=== PATIENT | male | born 1935 | race African-American/Black ===

== ENCOUNTER 2018-08-07 15:06 | Inpatient (IN) | payer MEDICARE, BC ==
[2018-08-07] VITALS (7 sets, daily range): BP systolic 102–180; BP diastolic 50–135
[~2018-08-07] VITALS: Ht 182.9 cm; Wt 88.5 kg
--- NOTE | 2018-08-07 15:10 | NUR ---
ED Nurse Note: Pt present at ER sent by his primary doctor Dr. Coe for possible stroke. Pt AAO x4 response to name spontaneuosly, VSS, no drooping and slurred speach noted at this moment. Remaining calm and cooperative with initial assessment.
[2018-08-07 15:45] LABS: BASOPHILS % (AUTO) 1.5 % (0.0-2.0); EOSINOPHILS % (AUTO) 1.2 % (0.0-3.0); HEMATOCRIT 44.1 % (42.0-52.0); HEMOGLOBIN 14.9 G/DL (14.2-18.0); LYMPHOCYTES % (AUTO) 25.2 % (20.0-45.0); MEAN CORPUSCULAR VOLUME 88 FL (80-99); MONOCYTES % (AUTO) 10.8 % (1.0-10.0); NEUTROPHILS % (AUTO) 61.4 % (45.0-75.0); PLATELET COUNT 269 K/UL (150-450); RED CELL DISTRIBUTION WIDTH 12.2 % (11.6-14.8); WHITE BLOOD COUNT 10.1 K/UL (4.8-10.8)
[2018-08-07 16:04] LABS: ANION GAP 11 mmol/L (5-15); BLOOD UREA NITROGEN 17 mg/dL (7-18); CALCIUM 9.1 MG/DL (8.5-10.1); CARBON DIOXIDE 27 MMOL/L (21-32); CHLORIDE 103 MMOL/L (98-107); CREATININE 1.1 MG/DL (0.55-1.30); SODIUM 141 MMOL/L (136-145)
--- NOTE | 2018-08-07 16:10 | NUR ---
ED Nurse Note: Pt went down for CT scan in stable condition.
[2018-08-07 16:13] LABS: ALANINE AMINOTRANSFERASE 10 U/L (12-78); ALBUMIN 3.7 G/DL (3.4-5.0); ALKALINE PHOSPHATASE 123 U/L (46-116); ASPARTATE AMINO TRANSFERASE 13 U/L (15-37); BILIRUBIN,TOTAL 0.5 MG/DL (0.2-1.0); CREATINE KINASE 105 U/L (26-308)
--- NOTE | 2018-08-07 16:29 | NUR ---
ED Nurse Note: Pt came back from CT scan in stable condition.
--- NOTE | 2018-08-07 16:38 | Emergency Room Report ---
History of Present Illness General Chief Complaint: Stroke Symptoms Source: Patient Present Illness HPI The patient was sent for evaluation of slurred speech. This started at 1:30 when he was getting on the bus to come see his doctor. His doctor noted that his speech was slurred and not his usual. He is uncertain whether this is starting to get better at this time. He denies any headache, weakness, numbness , change in vision. The patient has hypertension and a history of smoking. The patient denies head trauma, oncologic problems, bleeding disorders or blood thinners, unilateral weakness or numbness, chest pain or palpitations. No fevers, chills, nausea, vomiting, diarrhea, dysuria, abdominal pain, shortness of breath, depression, visual changes. Please try to stop smoking but the medication cost too much. He does not know what his cholesterol is. Allergies: Coded Allergies: No Known Allergies (Unverified , 08/07/18) Patient History Past Medical History: see triage record Social History: Reports: smoking; Denies: alcohol use, drug use Social History Narrative Lives at home. Previous body piercer Reviewed Nursing Documentation: PMH: Agreed; PSxH: Agreed Nursing Documentation-PMH Past Medical History: No History, Except For Hx Hypertension: Yes Review of Systems All Other Systems: negative except mentioned in HPI Physical Exam Vital Signs Date Time Temp Pulse Resp B/P (MAP) Pulse Ox O2 Delivery O2 Flow Rate FiO2 08/07/18 15:10 97.7 77 18 122/70 94 Room Air Sp02 EP Interpretation: reviewed, normal General Appearance: well appearing, no apparent distress, GCS 15 Head: normocephalic, atraumatic Eyes: bilateral eye normal inspection, bilateral eye PERRL ENT: moist mucus membranes Neck: supple Respiratory: lungs clear, normal breath sounds Cardiovascular #1: regular rate, rhythm Cardiovascular #2: 2+ radial (R) Gastrointestinal: normal inspection, normal bowel sounds, non tender, no mass, non-distended Musculoskeletal: back normal, gait/station normal, normal range of motion Neurologic: alert, oriented x3, clerk rating III-XII nml as tested, motor strength/tone normal, DTRs symmetric, sensory intact, cerebellar normal, normal gait, speech normal Psychiatric: mood/affect normal Skin: normal inspection, warm/dry Medical Decision Making Diagnostic Impression: Primary Impression: TIA (transient ischemic attack) Additional Impressions: HTN (hypertension) Qualified Codes: I10 - Essential (primary) hypertension Tobacco abuse ER Course Patient presents with alterations in his speech. Differential includes stroke, TIA, electrolyte imbalance, drug ingestion amongst others. He is within the window for receiving TPA however based on his NIH score TPA is not indicated. In addition it is possible that he is improving at this time. Evaluation was EKG, chest x-ray and a CT of the head and labs. EKG without injury. Chest x-ray COPD. CT of the head unremarkable, no bleed, infarct or abnormality noted. Labs unremarkable. Aspirin is given. Dr. Coe declines Plavix. The patient does not want to be observed but discussion centered around needing to be evaluated by neurologist including having studies of his carotid blood flow. The patient agrees to observation. Dr. Coe requests we order an MRI. MRI suggests infarct. This was discussed with the patient. Patient is admitted to telemetry under the care of Dr. Coe. Dr. Fitch is contacted for consultation. Laboratory Tests Test 08/07/18 15:26 08/07/18 16:14 White Blood Count 10.1 K/UL (4.8-10.8) Red Blood Count 5.00 M/UL (4.70-6.10) Hemoglobin 14.9 G/DL (14.2-18.0) Hematocrit 44.1 % (42.0-52.0) Mean Corpuscular Volume 88 FL (80-99) Mean Corpuscular Hemoglobin 29.7 PG (27.0-31.0) Mean Corpuscular Hemoglobin Concent 33.7 G/DL (32.0-36.0) Red Cell Distribution Width 12.2 % (11.6-14.8) Platelet Count 269 K/UL (150-450) Mean Platelet Volume 5.9 FL (6.5-10.1) L Neutrophils (%) (Auto) 61.4 % (45.0-75.0) Lymphocytes (%) (Auto) 25.2 % (20.0-45.0) Monocytes (%) (Auto) 10.8 % (1.0-10.0) H Eosinophils (%) (Auto) 1.2 % (0.0-3.0) Basophils (%) (Auto) 1.5 % (0.0-2.0) Prothrombin Time 10.7 SEC (9.30-11.50) Prothrombin Time INR 1.0 (0.9-1.1) PTT 26 SEC (23-33) Sodium Level 141 MMOL/L (136-145) Potassium Level 4.0 MMOL/L (3.5-5.1) Chloride Level 103 MMOL/L (98-107) Carbon Dioxide Level 27 MMOL/L (21-32) Anion Gap 11 mmol/L (5-15) Blood Urea Nitrogen 17 mg/dL (7-18) Creatinine 1.1 MG/DL (0.55-1.30) Estimate Glomerular Filtration Rate mL/min (>60) Glucose Level 116 MG/DL (74-106) H Calcium Level 9.1 MG/DL (8.5-10.1) Total Bilirubin 0.5 MG/DL (0.2-1.0) Aspartate Amino Transferase (AST) 13 U/L (15-37) L Alanine Aminotransferase (ALT) 10 U/L (12-78) L Alkaline Phosphatase 123 U/L (46-116) H Total Creatine Kinase 105 U/L (26-308) Troponin I 0.007 ng/mL (0.000-0.056) Pro-B-Type Natriuretic Peptide 261 pg/mL (0-125) H Total Protein 7.3 G/DL (6.4-8.2) Albumin 3.7 G/DL (3.4-5.0) Globulin 3.6 g/dL Albumin/Globulin Ratio 1.0 (1.0-2.7) Urine Color Yellow Urine Appearance Clear Urine pH 5 (4.5-8.0) Urine Specific [place] 1.025 (1.005-1.035) Urine Protein 1+ (NEGATIVE) H Urine Glucose (UA) Negative (NEGATIVE) Urine Ketones 1+ (NEGATIVE) H Urine Blood Negative (NEGATIVE) Urine Nitrite Negative (NEGATIVE) Urine Bilirubin Negative (NEGATIVE) Urine Urobilinogen 4 MG/DL (0.0-1.0) H Urine Leukocyte Esterase 1+ (NEGATIVE) H Urine RBC 0-2 /HPF (0 - 0) H Urine WBC 0-2 /HPF (0 - 0) Urine Squamous Epithelial Cells None /LPF (NONE/OCC) Urine Calcium Oxalate Crystals Few /LPF (NONE) Urine Bacteria Occasional /HPF (NONE) Urine Mucus Moderate /LPF (NONE/OCC) H Urine Opiates Screen Negative (NEGATIVE) Urine Barbiturates Screen Negative (NEGATIVE) Phencyclidine (PCP) Screen Negative (NEGATIVE) Urine Amphetamines Screen Negative (NEGATIVE) Urine Benzodiazepines Screen Negative (NEGATIVE) Urine Cocaine Screen Negative (NEGATIVE) Urine Marijuana (THC) Screen Negative (NEGATIVE) EKG Diagnostic Results Rate: normal Rhythm: NSR ST Segments: no acute changes - pvc Rhythm Strip Diag. Results EP Interpretation: yes Rhythm: NSR, other - rate 85 PVC Chest X-Ray Diagnostic Results Chest X-Ray Diagnostic Results : Chest X-Ray Ordered: Yes # of Views/Limited/Complete: 1 View Indication: Other EP Interpretation: Yes Interpretation: no consolidation, no effusion, no pneumothorax, other - COPD Impression: Other Electronically Signed by: Electronically signed by Alvaro Orellana MD CT/MRI/US Diagnostic Results CT/MRI/US Diagnostic Results #1: Imaging Test Ordered: head Impression no IC abnormality CT/MRI/US Diagnostic Results #2: Imaging Test Ordered: MRI head with contrast Impression Suggestion of small infarct Last Vital Signs Date Time Temp Pulse Resp B/P (MAP) Pulse Ox O2 Delivery O2 Flow Rate FiO2 08/08/18 00:30 97.5 57 17 129/57 (81) 96 08/07/18 21:33 Room Air Status: improved Disposition: ADMITTED INPATIENT Condition: Serious Referrals: Allen Larson DO (PCP) Alvaro Orellana MD Aug 07, 2018 16:37
[2018-08-07 16:41] LABS: APPEARANCE,URINE CLEAR; BILIRUBIN, URINE NEGATIVE (NEGATIVE); GLUCOSE, URINE (UA) NEGATIVE (NEGATIVE); KETONES,URINE 1+ (NEGATIVE); LEUKOCYTE ESTERASE ,URINE 1+ (NEGATIVE); NITRITE,URINE NEGATIVE (NEGATIVE); PH,URINE 5 (4.5-8.0); PROTEIN,URINE 1+ (NEGATIVE); UROBILINOGEN,URINE 4 MG/DL (0.0-1.0)
[2018-08-07 16:44] LABS: COLOR,URINE YELLOW
[2018-08-07] MEDS ORDERED: Gadavist 7.5mMol/7.5ml vial IV PRN (17:00)
--- NOTE | 2018-08-07 18:26 | Geriatric Progress Note ---
Subjective Interval Events Patient with generally good health, continues to lift weights. Frequently treated by ? external compression therapy in [place]. Takes OTC supplements. Used Creatine for body building. Seen by Dr. Fitch for HTN. History of HTN in office, but reportedly normal bps at home. Started on HCTZ. Subsequently started ON amlodipine and metoprolol by Dr. Fitch. +Smoking history. When seen in office, garbled speech with naming difficulities. No obvious receptive deficits. Baseline speech is slight stuttering "street" yuriy. No focal deficits appreciated in office, but some slowness in response, mild apraxia with cellphone. Improved now in ED with speech c/w baseline, slowness resolved. PE with elevated bp. Chest clear CV RR Abd benign Ext without edema. MRI with R troy radiata infarct just above insula, no comment on age. Discussed with Dr. Lyn, reports infarct is acute. Unclear if lesion would produce transient aphasia. Neuro consult pending per Dr. Toney. Given acute finding will also check EEG and Echo. Dr. Fitch to see re cardiac status. Given ASA by Dr. Orellana. Resume antihypertensives to keep systolic below 160, but not too low. Dictated #[id number] Geriatric Geriatric Last 24 Hour Vital Signs Date Time Temp Pulse Resp B/P (MAP) Pulse Ox O2 Delivery O2 Flow Rate FiO2 08/07/18 17:04 97.9 92 16 102/60 100 Room Air 08/07/18 15:15 98.8 91 22 171/91 98 Room Air 08/07/18 15:10 97.7 77 18 122/70 94 Room Air Laboratory Tests Test 08/07/18 15:26 08/07/18 16:14 White Blood Count 10.1 K/UL (4.8-10.8) Red Blood Count 5.00 M/UL (4.70-6.10) Hemoglobin 14.9 G/DL (14.2-18.0) Hematocrit 44.1 % (42.0-52.0) Mean Corpuscular Volume 88 FL (80-99) Mean Corpuscular Hemoglobin 29.7 PG (27.0-31.0) Mean Corpuscular Hemoglobin Concent 33.7 G/DL (32.0-36.0) Red Cell Distribution Width 12.2 % (11.6-14.8) Platelet Count 269 K/UL (150-450) Mean Platelet Volume 5.9 FL (6.5-10.1) L Neutrophils (%) (Auto) 61.4 % (45.0-75.0) Lymphocytes (%) (Auto) 25.2 % (20.0-45.0) Monocytes (%) (Auto) 10.8 % (1.0-10.0) H Eosinophils (%) (Auto) 1.2 % (0.0-3.0) Basophils (%) (Auto) 1.5 % (0.0-2.0) Prothrombin Time 10.7 SEC (9.30-11.50) Prothromb Time International Ratio 1.0 (0.9-1.1) Activated Partial Thromboplast Time 26 SEC (23-33) Sodium Level 141 MMOL/L (136-145) Potassium Level 4.0 MMOL/L (3.5-5.1) Chloride Level 103 MMOL/L (98-107) Carbon Dioxide Level 27 MMOL/L (21-32) Anion Gap 11 mmol/L (5-15) Blood Urea Nitrogen 17 mg/dL (7-18) Creatinine 1.1 MG/DL (0.55-1.30) Estimat Glomerular Filtration Rate mL/min (>60) Glucose Level 116 MG/DL (74-106) H Calcium Level 9.1 MG/DL (8.5-10.1) Total Bilirubin 0.5 MG/DL (0.2-1.0) Aspartate Amino Transf (AST/SGOT) 13 U/L (15-37) L Alanine Aminotransferase (ALT/SGPT) 10 U/L (12-78) L Alkaline Phosphatase 123 U/L (46-116) H Total Creatine Kinase 105 U/L (26-308) Troponin I 0.007 ng/mL (0.000-0.056) Pro-B-Type Natriuretic Peptide 261 pg/mL (0-125) H Total Protein 7.3 G/DL (6.4-8.2) Albumin 3.7 G/DL (3.4-5.0) Globulin 3.6 g/dL Albumin/Globulin Ratio 1.0 (1.0-2.7) Urine Color Yellow Urine Appearance Clear Urine pH 5 (4.5-8.0) Urine Specific [place] 1.025 (1.005-1.035) Urine Protein 1+ (NEGATIVE) H Urine Glucose (UA) Negative (NEGATIVE) Urine Ketones 1+ (NEGATIVE) H Urine Blood Negative (NEGATIVE) Urine Nitrite Negative (NEGATIVE) Urine Bilirubin Negative (NEGATIVE) Urine Urobilinogen 4 MG/DL (0.0-1.0) H Urine Leukocyte Esterase 1+ (NEGATIVE) H Urine RBC 0-2 /HPF (0 - 0) H Urine WBC 0-2 /HPF (0 - 0) Urine Squamous Epithelial Cells None /LPF (NONE/OCC) Urine Calcium Oxalate Crystals Few /LPF (NONE) Urine Bacteria Occasional /HPF (NONE) Urine Mucus Moderate /LPF (NONE/OCC) H Urine Opiates Screen Negative (NEGATIVE) Urine Barbiturates Screen Negative (NEGATIVE) Phencyclidine (PCP) Screen Negative (NEGATIVE) Urine Amphetamines Screen Negative (NEGATIVE) Urine Benzodiazepines Screen Negative (NEGATIVE) Urine Cocaine Screen Negative (NEGATIVE) Urine Marijuana (THC) Screen Negative (NEGATIVE) Current Medications Medications (Trade) Dose Ordered Sig/[place] Route PRN Reason Start Time Stop Time Status Last Admin Dose Admin Gadobutrol (Gadavist) 7.5 mmol NOW PRN IV Radiology Procedure 08/07/18 17:00 08/11/18 16:53 Height (Feet): 6 Weight (Pounds): 195 Catracho Coe MD Aug 07, 2018 18:26
--- NOTE | 2018-08-07 18:32 | NUR ---
ED Nurse Note: Pt came back from MRI. No s/s of distress. Duplex scan at the bedside at this time.
--- NOTE | 2018-08-07 19:21 | NUR ---
HAND-OFF: Report given to Renu. Not able to give report to Tali at this time. Skin intact and pt is stable, AAOx4
--- NOTE | 2018-08-07 20:41 | NUR ---
ED Nurse Note: Patient having multiple conversations over the phone. Patient is A&ox4, no complaints of pain. Blood pressure elevated, ERMD aware.
--- NOTE | 2018-08-07 21:06 | NUR ---
ED Nurse Note: report called into kristel. PAtient accompanied to floor by RN and product technology scientist. Orthostatic Bp taken prior to transport, Patient A&Ox43. no complaints of pain. secured entrance monitor in tow.
--- NOTE | 2018-08-07 21:15 | NUR ---
NURSE NOTES: Pt admitted to floor from ED. osteology teacher applied; pt is SR. VSS. Pt belongings verified. Report received from TC Sears. Pt is sitting comfortably on side of bed. A+Ox4, denies pain and SOB. Pt shows no signs of distress. IV site is patent, intact, and saline locked. Respirations are even and unlabored on room air. Bed is at lowest position, brakes engaged, siderails x2, bed alarm on, and call light within reach. Pt is in stable condition at this time, admission orders in; will continue to monitor.
--- NOTE | 2018-08-07 22:03 | Consultation ---
Consult Note Consult Note NEUROLOGY CONSULTATION: Full note dictated #[id number] 83 y/o, RH, BM with PH of HTN and smoking since age 18. He was at his Dr's office and was noted to have problems expressing himself. The problem lasted ~ 5-10 minutes and then resolved. ON EXAM: Problems with memory. HCF Mild anomia IMPRESSION: Possible TIA involving language area. REC: Await MRI. BP control 120-130/70-80 mm of Hg goal. W/U for other reasons for CVD. ASA 81 mg STOP smoking. Observe Abrahan Toney M.D., M.S.P.H. Abrahan Toney MD Aug 07, 2018 22:03
[2018-08-07] MEDS: Metoprolol 25mg tab ORAL SCH (22:05)
[2018-08-07] MEDS ORDERED: METOPROLOL SUCC25 MG ORAL (23:16)
[2018-08-07] MEDS ORDERED: ASPIRIN81 MG ORAL (23:16)
[2018-08-08 00:30] VITALS: BP 129/57
--- NOTE | 2018-08-08 00:42 | Consultation ---
DATE OF CONSULTATION: 08/07/2018 NEUROLOGY CONSULTATION CONSULTING PHYSICIAN: Abrahan Toney M.D. REFERRING PHYSICIAN: Catracho Coe M.D. HISTORY: Mr. Ian Thomas is an 83-year-old, right-handed, black gentleman, who does have a past history of hypertension and smoking since he was age 18. He was functioning relatively well until the afternoon of 08/07/18 when he was at his doctor's office and was noted to have problems expressing himself. He was sent to the [facility] Emergency Room and he feels that the problem lasted for approximately 5 to 10 minutes and then resolved spontaneously. He remembers having problems with saying what he wanted to say, but he had no problems understanding what people were telling him. He also denied any associated weakness on one side or the other, numbness on one side or the other, problems with vision, problems with memory, or other neurological symptoms. He denies having similar symptoms in the past. PAST MEDICAL HISTORY: Significant for hypertension and smoking since age 18. FAMILY HISTORY: Significant for his mother having multiple strokes. PERSONAL HISTORY: Home: He lives alone. 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 Habits: He started smoking at age 18 and still smokes 7 to 8 cigarettes per day. He denies use of alcohol or illicit drugs. PRESENT MEDICATIONS: Metoprolol, amlodipine, and aspirin 325 mg taken once. PHYSICAL EXAMINATION: GENERAL: He is a well-developed, well-nourished, pleasant black gentleman, in no acute distress. VITAL SIGNS: Pulse 72/minute, blood pressure 146/90 mmHg, respirations 18/minute, and temperature 97.9 degrees Fahrenheit. When he came into the hospital, his blood pressure was as high as 180/78 mmHg when he was in the emergency room. HEAD: Normocephalic and atraumatic. EENT: Examination benign except for him being edentulous other than having two teeth remaining. NECK: No neck rigidity was observed. NEUROLOGICAL EXAMINATION: MENTAL STATUS EXAMINATION: He was awake and alert. He was oriented to person, place, and time. He was able to recall 3/3 words immediately, but could only remember 2/3 words in 1 minute and 3 minutes even on the second trial. He was able to remember Presidents Trump through Goss Jagjit. His mathematical skills were impaired. His visuospatial function was also impaired. SPEECH: He had a mild dysarthria, but it should be noted that he was close to edentulous. LANGUAGE: He had a mild anomia for low-frequency words. CRANIAL NERVE EXAMINATION: II: The visual prakash were intact on confrontation testing. III, IV & : The external ocular movements were full and the pupils 3 mm in diameter, equal, round, regular, and reactive to light. V: He had normal facial sensations, and the temporales, masseters, and pterygoids functioned normally. VII: He had normal facial expressions and no facial asymmetry. VIII: He was able to hear well bilaterally and had no nystagmus. IX: The palate moved symmetrically on phonation. X: He had no hoarseness of voice. XI: The sternocleidomastoids and trapezii functioned normally. XII: The tongue was in the midline without any fasciculations or atrophy. MOTOR SYSTEM: The tone was normal in all four extremities. Examination of muscle mass revealed no focal wasting. He did have bilateral deep Dupuytren's contractures, more marked on the right than on the left. Examination of power revealed G 5/5 power in all muscle groups tested. SENSORY EXAMINATION: He had intact sensations to pinprick, light touch, and graphesthesia. COORDINATION: He performed well on cbzdtb-gw-spca testing. REFLEXES: 1+ and bilaterally symmetrical at the biceps, triceps, brachioradialis, and knees, and 0 at both ankles. The plantar responses were flexor bilaterally. STANCE: He had a minimally wide-based, but stable stance. GAIT: He walked with a minimally wide-based, but stable gait. DIAGNOSTIC IMPRESSION: 1. Mr. Ian Thomas is an 83-year-old, right-handed, black gentleman, with past history of hypertension and smoking, who on the afternoon of 08/07/18 had 5 to 10-minute episode of problems expressing himself, which resolved spontaneously. 2. On neurological examination at this time, he does have problems with recent and remote memory, visuospatial function, higher cognitive function, and a mild anomia. 3. Laboratory data obtained thus far have revealed a relatively normal CBC. Chemistry panel with blood glucose elevated to 116, alkaline phosphatase elevated to 123. ProBNP elevated to 161. Urine toxicology screen that was benign. Urinalysis that revealed 1+ leukocyte esterase, 0-2 red blood cells, and 0-2 white blood cells per high-power field. 4. The patient's history, neurological examination, and laboratory data are most compatible with a possible transient ischemic event involving the language area of the brain. RECOMMENDATIONS: 1. The patient was given an explanation of the above-mentioned findings. 2. He has had an MRI scan of the brain performed, however, the images and report are unavailable to us at this point in time. 3. He should be started on aspirin 81 mg daily. 4. His blood pressure should be kept in the 120 to 130 over 70 to 80 mmHg range at all times. 5. He was told to stop smoking immediately. 6. He should be worked up for other treatable causes of cerebrovascular disease with in addition to the laboratory tests already done, an ESR, RPR, glycohemoglobin, fasting serum lipid panel, and TSH. 7. A carotid duplex should be performed to evaluate the patient for hemodynamically significant carotid disease. 8. The patient will be observed closely and depending on how he fares over the next day or so, further recommendations will be given. Thank you for entrusting me with the care of Mr. Thomas. I shall follow him with you. Abrahan Toney M.D., M.S.P.H. DR: YIN JOB#: [id number] SAÚL
--- NOTE | 2018-08-08 01:30 | Consultation ---
DATE OF CONSULTATION: 08/07/2018 CARDIOLOGY CONSULTATION CONSULTING PHYSICIAN: Alvaro Fitch M.D. REQUESTING PHYSICIAN: Catracho Coe M.D. REASON FOR CONSULTATION: Acute cerebrovascular accident. HISTORY OF PRESENT ILLNESS: This is an 83-year-old male. He has multiple risk factors for accelerated atherosclerosis. He has been in good health generally, however, and lifts weights and is quite active. He was recently started on additional antihypertensives by me following evaluation at my office on several occasions. He also had an outpatient echocardiogram revealing left ventricular hypertrophy with normal ejection fraction and a diastolic relaxation abnormality. He was seen in Dr. Coe's office today and had garbled speech with difficulty naming objects. Response time was slower than usual. There was apraxia noted with his cellphone. Later, those symptoms improved after he was sent to the emergency room. However, an MRI done revealed an acute right troy radiata infarct. PAST MEDICAL HISTORY: The patient's past medical history includes hypertension. MEDICATIONS: Amlodipine, metoprolol, and possibly hydrochlorothiazide, as well as aspirin that I had prescribed although compliance is unclear. ALLERGIES: None. SOCIAL HISTORY: Heavy smoker, [id number] of at least a pack a day. Social alcohol. No substance abuse. FAMILY HISTORY: Noncontributory. REVIEW OF SYSTEMS: No fevers or chills. No cough or sputum production. No history of regular steroid use. He does use creatine for his weight lifting. There is no prior history of seizure or stroke. His cholesterol parameters are not presently available. There is no history of thyroid disorder or diabetes. There is no difficulty voiding or history of elevated PSA. There is no history of melena or bright red blood per rectum. There is no history of abnormal blood clotting. PHYSICAL EXAM: VITAL SIGNS: Blood pressure in the emergency room on presentation 122/70, subsequently 171/91, now 129/57, heart rate 81, and respiratory rate 17. HEENT: Conjunctivae are pink. Sclerae are anicteric. Oropharynx clear. Mucous membranes moist. NECK: Supple. No bruits. Jugular venous pressure normal. LUNGS: Clear. CARDIAC: Regular. Normal S1, S2 with a fourth heart sound. Occasional ectopic beats. Monitored rhythm, sinus with premature ventricular contractions nonsustained. ABDOMEN: Soft and nontender. EXTREMITIES: Good pulses. No edema. NEUROLOGIC: Reveals symmetric strength at this time and mild difficulty with some words. LABORATORY DATA: Chemistry panel within normal limits other than glucose 116 and pro-natriuretic peptide 261. Troponin 0.007. White count 10 and hemoglobin 14.9. Urinalysis with 0 to 2 white and red cells and 1+ protein. EKG with sinus rhythm and occasional premature ventricular contractions. IMPRESSION: 1. Acute cerebrovascular accident. 2. 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 3. Nonsustained ventricular ectopy. 4. Nicotine abuse. 5. Generalized atherosclerosis. PLAN: 1. Cardiac monitoring. 2. Advance anti-platelet therapy to clopidogrel. 3. Continue beta-roderick and titrate amlodipine. 4. Check full lipid panel. 5. Metabolic profile. 6. Add statin drugs. 7. Echocardiogram with bubble study. 8. Carotid duplex. 9. Physical, occupational, and speech therapy to follow. Alvaro Fitch M.D. DR: RILEY JOB#: [id number] CC:
[2018-08-08 04:00] VITALS: BP 147/79
--- NOTE | 2018-08-08 05:15 | History and Physical Report ---
DATE OF ADMISSION: 08/07/2018 IDENTIFYING DATA: The patient is an 83-year-old gentleman, who presents with an episode of transient aphasia and altered mental status with evidence of probable lacunar stroke on MRI. HISTORY OF PRESENT ILLNESS: The patient is a gentleman who has generally been in relatively good health. At his age of 83, he continues to exercise and participate in bodybuilding. His major medical problem has been poorly controlled hypertension and he continues to smoke. On the present occasion, the patient presented to the office today for a routine visit. On presentation to the office, he developed garbled speech with word-finding difficulties and also appeared to be somewhat slowed in his mentation and somewhat apractic in his use of cellphone. The patient himself was not entirely aware of the situation. He did not appear to have significant receptive component since he responded appropriately and attempted to converse in a normal fashion. An attempt was made to call family members who had seen him recently to determine whether this was something they had noted over the last day or so, but no one could be reached. A brief neurologic examination in the office failed to reveal evidence of lateralizing signs in the cranial nerves or peripherally, although there did appear to be a somewhat broader based gait than it was normal for him. In any event, given the acute presentation, the possibility of an incipient or ongoing cerebrovascular accident was considered and the patient was brought to the [facility] Emergency Department. In the emergency department, initial evaluation failed to reveal any specific abnormalities. The patient's initial blood pressure was somewhat elevated apparently in the emergency room as it had been in the office. An initial CT scan failed to show evidence of acute pathology. However, given the definite functional changes noted, it was felt the patient should undergo an MRI of the brain with contrast as well as further observation. An MRI was completed and reportedly showed evidence of a right troy radiata infarct just above the insula. Therefore, the patient is being admitted for further evaluation and treatment. As the patient's aphasic deficits have gradually resolved over approximately two- to three-hour period, the patient reports that he is definitely feeling better, but he was unable to describe what his symptoms may have been during the period where he was experiencing difficulties. However, he admits he clearly feels differently now and feels more at baseline. PAST MEDICAL HISTORY: The patient has a significant history of hypertension; however, he has often reported that his hypertension appears to be white coat in etiology with normal blood pressures at home. In fact, home health care surveillance has indicated at times that the blood pressures run lower than in the office. Therefore, for a significant period of time, the patient was treated expectantly without medication therapy. However, approximately a year ago, the patient was begun on hydrochlorothiazide as initial therapy. He subsequently was seen by Dr. Alvaro Fitch, who placed the patient on doses of metoprolol and amlodipine. The patient had been taking these, but may have run out of the medication, at least one of the medications in the days just prior to this admission. The patient also has significant smoking history since the age of 18. He has had difficulty attempting to stop, although he has intermittently reported stopping his smoking. Otherwise, the patient has vitamin D deficiency and also in the past was treated with folate. The patient frequently takes [id number] supplements and in the past has used creatine for bodybuilding, but denies ever having used anabolic steroids or other substances, which would place him at increased risk for cardiovascular disease. He also frequently has vascular screening done by an outside group and also undergoes some sort of external compression therapy by a group in [place], which reportedly improves vascular and cardiac function. The details of this are uncertain. 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 Subsequently, he would frequently go to the airport and collect cans and bottles for recycling. He lifts weights episodically and frequently goes to the gym for conditioning. He is a sports fan and spends a great deal of time following the local sports teams. The patient was born in [place] and came to [place] at the age of 24. He has had two years of high school. He has two children and three grandchildren. He is a . He apparently lives in some sort of duplex with his son living in the adjacent domicile. FAMILY HISTORY: Notable for cancer in his mother and sisters. History of strokes in his mother with resulting dementia and a history of prediabetes in family members. Also, history of heart disease in one sister. ALLERGIES: No known allergies. MEDICATIONS: Include vitamin D 2000 units daily, folate 1 mg daily, hydrochlorothiazide 25 mg daily, amlodipine 5 mg daily, and metoprolol 25 mg b.i.d. REVIEW OF SYSTEMS: The patient on recovering his speech reports that he has no symptoms including no headache or other neurologic symptoms. No problems with chest pain, palpitations, or respiratory difficulties. No change in appetite. No change in bowel or bladder and no specific joint pains. No fever or chills. He has had a cold over the last week or so, which has gradually improved. However, he denies taking any specific cold related medications and he states that the symptoms have gradually been resolving. PHYSICAL EXAMINATION: VITAL SIGNS: The patient's blood pressure is 102/60, heart rate is 92 and regular, respiratory rate 16, and pulse oximetry 100% on room air. GENERAL: The patient is a well-developed gentleman, now alert with mental status consistent with his baseline. The patient's speech involves some stuttering with a "street" type pattern, which is his baseline. During his aphasic period, he had garbled speech, unclear words, and obvious word-finding difficulties at times, but the speech was fluent. HEAD AND NECK: Reveals normocephalic and atraumatic skull. The sclerae appear anicteric. The oropharynx appears clear. The neck appears supple with normal range of motion. CHEST: Clear with somewhat distant breath sounds. CARDIOVASCULAR: Reveals a regular rhythm. ABDOMEN: Reveals normal bowel sounds, soft and nontender without masses or organomegaly appreciated. EXTREMITIES: Without evidence of edema or acute joint pathology. In the office, the patient was able to stand with a broad-based stance. NEUROLOGIC: His movements were just slightly slow compared to normal, but the patient appears to have resolved this. The patient also had some element of apraxia with cellphone usage in the office. This was not retested at the present time. In the emergency department, the patient was given a full dose aspirin by Dr. Orellana. LABORATORY AND DIAGNOSTIC DATA: Laboratory data includes a white count of 10.1, hematocrit of 44.1%, MCV 88, and platelet count 269. Differential appears normal. INR is 1.0 and PTT 26. Sodium 141, potassium 4.0, chloride 103, bicarbonate 27, BUN 17, creatinine 1.1, glucose 116, and calcium 9.1. Total bilirubin 0.5. AST 13, ALT 10, and alkaline phosphatase 123. Total CK 105. Troponin 0.007. BNP 261. Total protein 7.3. Albumin 3.7. Urinalysis shows specific gravity 1.025, 1+ protein, 1+ ketones, 1+ leukocyte esterase, 0 to 2 rbc's, 0 to 2 wbc's, and occasional bacteria. A urine toxicology screen was negative for opiates, barbiturates, phencyclidine, amphetamines, benzodiazepines, cocaine, and marijuana. As stated above, the patient's CT scan was reported showing no acute pathology. The small right troy radiata acute stroke was seen on MRI with contrast. Carotid profile was done and is reported to show no evidence of acute obstruction. IMPRESSION: The patient presents with symptoms consistent with either a small stroke involving language function or a TIA, or potentially a seizure-like event, perhaps triggered by a prior cerebrovascular accident. Most likely, etiology would be a small vascular event associated with his hypertensive disease with increased risk due to smoking. Other possibilities would include some sort of embolic phenomena associated with cardiac pathology. The patient's small area of infarction would make him an unlikely candidate for tPA therapy despite the recent onset of symptoms. Therefore, he had been treated with aspirin. Neurologic consultation will be obtained from Dr. Abrahan Toney. Cardiology consultation will be obtained from Dr. Alvaro Fitch. The patient will receive an EEG and cardiac echo as well and will be placed on his amlodipine and metoprolol for blood pressure control with an attempt to keep the blood pressure from dropping below 120. Hydrochlorothiazide will not be used initially since diminished volume might be somewhat detrimental in a situation like this. Given the patient's ambulatory status and the recent cerebrovascular accident, anticoagulation for DVT therapy will not be pursued at the present time pending further information. The patient was reluctant to be admitted to the hospital saying that he needed to be at home for an appointment with regard to his electrical meter. However, given the hard evidence of an acute cerebrovascular event and significant risk for further pathology, it was explained to the patient that he should undergo more complete evaluation and stabilization to diminish his risk for further functional deficits. The patient concurred after the discussion. Additional interventions will be considered depending on the patient's response to therapy. Catracho Coe M.D. DR: BROOKLYN JOB#: [id number] CC: SAÚL
--- NOTE | 2018-08-08 06:03 | NUR ---
NURSE NOTES: Left message with Dr. Coe regarding DVT prophylaxis order and order for possible pneumo vaccine; awaiting response.
--- NOTE | 2018-08-08 07:14 | NUR ---
HAND-OFF: Report given to TC Smith. Pt is in stable condition; plan of care endorsed.
--- NOTE | 2018-08-08 07:46 | NUR ---
NURSE NOTES: Report received from Cady MONTEZ. Pt is resting in his bed with open eyes. Pt is awake, alert, and oriented x4. Pt oxygen sat 97% @ RA, breathing even and unlabored. No acute distress, NO c/o pain noted at this time. IV asymptomatic, patent, and intact. Bed placed in lowest position with brake engaged, side rails up x2. Call light and frequent used objects are within reach. Will continue to monitor.
[2018-08-08 08:00] VITALS: BP 140/56
[2018-08-08 08:22] LABS: EOSINOPHILS % (AUTO) 1.3 % (0.0-3.0); HEMATOCRIT 43.1 % (42.0-52.0); HEMOGLOBIN 14.9 G/DL (14.2-18.0); LYMPHOCYTES % (AUTO) 18.6 % (20.0-45.0); MEAN CORPUSCULAR VOLUME 87 FL (80-99); NEUTROPHILS % (AUTO) 71.2 % (45.0-75.0); PLATELET COUNT 254 K/UL (150-450); RED BLOOD COUNT 4.94 M/UL (4.70-6.10); RED CELL DISTRIBUTION WIDTH 12.1 % (11.6-14.8)
[2018-08-08 08:32] LABS: ANION GAP 6 mmol/L (5-15); BLOOD UREA NITROGEN 15 mg/dL (7-18); CALCIUM 9.3 MG/DL (8.5-10.1); CARBON DIOXIDE 29 MMOL/L (21-32); CHLORIDE 104 MMOL/L (98-107); POTASSIUM 4.2 MMOL/L (3.5-5.1); SODIUM 139 MMOL/L (136-145)
[2018-08-08] MEDS: Metoprolol 25mg tab ORAL SCH ×2 (08:41→20:59)
[2018-08-08 08:46] LABS: CREATINE KINASE 93 U/L (26-308)
[2018-08-08 08:58] LABS: CHOLESTEROL 168 MG/DL (< 200); HDL CHOLESTEROL 41 MG/DL (40-60); TRIGLYCERIDES 95 MG/DL (30-150)
--- NOTE | 2018-08-08 09:58 | NUR ---
CASE MANAGEMENT:REVIEW 83 YR OLD MALE FROM DR DAWSON'S OFFICE CC; STROKE LIKE SYMPTOMS...SLURRED SPEECH SI: TIA. HTN 98.7 91 22 171/91 98% ON RA GLUCOSE+116 IS: ASA 325MG PO CAROTID DUPLEX CT HEAD MRI BRAIN CXR : TO TELEMETRY IS: PLAVIX PO QD LOPRESSOR PO Q12 NORVASC PO QD NEURO CONSULT PENDING PER MD'S NOTES (+) RT HOGAN RADIATA INFARCT EEG INTERQUAL CRITERIA MET
--- NOTE | 2018-08-08 10:28 | NUR ---
REHAB MED PT NOTE CONSULT GUICHO ELKINS COMPLTED, PATIENT WILL BENEFIT FROM SKILLED PT DURING STAY FOR RETURN TO [facility]. LIKELY 1-2 VISITS. RECOMMEND HOME SAFETY EVAL PENDING PATIENT PROGRESS. PLAN OF CARE INITIATED. MADDIE CHICAS PT DPT Addendum: 08/08/18 at 1030 by MADDIE CHICAS PT Amended: Links added.
[2018-08-08 11:51] VITALS: BP 124/63
--- NOTE | 2018-08-08 15:31 | Neurology Progress Note ---
Interim History Interim History Interim History Mr. Thomas feels well. He has had no further episode of speech problems. The mind is clear. He denies any new neurologic symptoms. He specifically denies any weakness on one side or the other, numbness on one side or the other, problems with vision, problems with speech, or problems with language. He is eager to go home. Review of Systems Neuro Review of Systems Benign. Objective Physical Exam Last Vital Signs Date Time Temp Pulse Resp B/P (MAP) Pulse Ox O2 Delivery O2 Flow Rate FiO2 08/08/18 12:00 60 08/08/18 11:51 97.4 18 124/63 (83) 95 08/08/18 09:00 Room Air Laboratory Tests Test 08/07/18 15:26 08/07/18 16:14 08/08/18 06:40 White Blood Count 10.1 K/UL (4.8-10.8) 11.0 K/UL (4.8-10.8) H Red Blood Count 5.00 M/UL (4.70-6.10) 4.94 M/UL (4.70-6.10) Hemoglobin 14.9 G/DL (14.2-18.0) 14.9 G/DL (14.2-18.0) Hematocrit 44.1 % (42.0-52.0) 43.1 % (42.0-52.0) Mean Corpuscular Volume 88 FL (80-99) 87 FL (80-99) Mean Corpuscular Hemoglobin 29.7 PG (27.0-31.0) 30.2 PG (27.0-31.0) Mean Corpuscular Hemoglobin Concent 33.7 G/DL (32.0-36.0) 34.6 G/DL (32.0-36.0) Red Cell Distribution Width 12.2 % (11.6-14.8) 12.1 % (11.6-14.8) Platelet Count 269 K/UL (150-450) 254 K/UL (150-450) Mean Platelet Volume 5.9 FL (6.5-10.1) L 6.2 FL (6.5-10.1) L Neutrophils (%) (Auto) 61.4 % (45.0-75.0) 71.2 % (45.0-75.0) Lymphocytes (%) (Auto) 25.2 % (20.0-45.0) 18.6 % (20.0-45.0) L Monocytes (%) (Auto) 10.8 % (1.0-10.0) H 8.0 % (1.0-10.0) Eosinophils (%) (Auto) 1.2 % (0.0-3.0) 1.3 % (0.0-3.0) Basophils (%) (Auto) 1.5 % (0.0-2.0) 1.0 % (0.0-2.0) Prothrombin Time 10.7 SEC (9.30-11.50) Prothromb Time International Ratio 1.0 (0.9-1.1) Activated Partial Thromboplast Time 26 SEC (23-33) Sodium Level 141 MMOL/L (136-145) 139 MMOL/L (136-145) Potassium Level 4.0 MMOL/L (3.5-5.1) 4.2 MMOL/L (3.5-5.1) Chloride Level 103 MMOL/L (98-107) 104 MMOL/L (98-107) Carbon Dioxide Level 27 MMOL/L (21-32) 29 MMOL/L (21-32) Anion Gap 11 mmol/L (5-15) 6 mmol/L (5-15) Blood Urea Nitrogen 17 mg/dL (7-18) 15 mg/dL (7-18) Creatinine 1.1 MG/DL (0.55-1.30) 1.0 MG/DL (0.55-1.30) Estimat Glomerular Filtration Rate mL/min (>60) mL/min (>60) Glucose Level 116 MG/DL (74-106) H 87 MG/DL (74-106) Calcium Level 9.1 MG/DL (8.5-10.1) 9.3 MG/DL (8.5-10.1) Total Bilirubin 0.5 MG/DL (0.2-1.0) Aspartate Amino Transf (AST/SGOT) 13 U/L (15-37) L Alanine Aminotransferase (ALT/SGPT) 10 U/L (12-78) L Alkaline Phosphatase 123 U/L (46-116) H Total Creatine Kinase 105 U/L (26-308) 93 U/L (26-308) Troponin I 0.007 ng/mL (0.000-0.056) Pro-B-Type Natriuretic Peptide 261 pg/mL (0-125) H Total Protein 7.3 G/DL (6.4-8.2) Albumin 3.7 G/DL (3.4-5.0) Globulin 3.6 g/dL Albumin/Globulin Ratio 1.0 (1.0-2.7) Urine Color Yellow Urine Appearance Clear Urine pH 5 (4.5-8.0) Urine Specific [place] 1.025 (1.005-1.035) Urine Protein 1+ (NEGATIVE) H Urine Glucose (UA) Negative (NEGATIVE) Urine Ketones 1+ (NEGATIVE) H Urine Blood Negative (NEGATIVE) Urine Nitrite Negative (NEGATIVE) Urine Bilirubin Negative (NEGATIVE) Urine Urobilinogen 4 MG/DL (0.0-1.0) H Urine Leukocyte Esterase 1+ (NEGATIVE) H Urine RBC 0-2 /HPF (0 - 0) H Urine WBC 0-2 /HPF (0 - 0) Urine Squamous Epithelial Cells None /LPF (NONE/OCC) Urine Calcium Oxalate Crystals Few /LPF (NONE) Urine Bacteria Occasional /HPF (NONE) Urine Mucus Moderate /LPF (NONE/OCC) H Urine Opiates Screen Negative (NEGATIVE) Urine Barbiturates Screen Negative (NEGATIVE) Phencyclidine (PCP) Screen Negative (NEGATIVE) Urine Amphetamines Screen Negative (NEGATIVE) Urine Benzodiazepines Screen Negative (NEGATIVE) Urine Cocaine Screen Negative (NEGATIVE) Urine Marijuana (THC) Screen Negative (NEGATIVE) Erythrocyte Sedimentation Rate 8 MM/HR (0-20) Hemoglobin A1c 6.1 % (4.3-6.0) H C-Reactive Protein, Quantitative 0.4 mg/dL (0.00-0.90) Triglycerides Level 95 MG/DL (30-150) Cholesterol Level 168 MG/DL (< 200) LDL Cholesterol 112 mg/dL (<100) H HDL Cholesterol 41 MG/DL (40-60) Cholesterol/HDL Ratio 4.1 (3.3-4.4) Vitamin B12 Level 433 PG/ML (193-986) Vitamin D 25-Hydroxy Pending 25-Hydroxy Vitamin D2 Pending 25-Hydroxy Vitamin D3 Pending Folate 18.2 NG/ML (8.6-58.9) Thyroid Stimulating Hormone (TSH) 0.990 uiU/mL (0.358-3.740) Rapid Plasma Reagin Pending Neurologic Exam Objective PHYSICAL EXAMINATION: GENERAL: He is a well-developed, well-nourished, pleasant black gentleman, in no acute distress. HEAD: Normocephalic and atraumatic. EENT: Examination benign except for him being edentulous other than having two teeth remaining. NECK: No neck rigidity was observed. NEUROLOGICAL EXAMINATION: MENTAL STATUS EXAMINATION: He was awake and alert. He was oriented to person, place, and time. He was able to recall 3/3 words immediately, but could only remember 2/3 words in 1 minute and 3 minutes even on the second trial. He was able to remember Presidents Trump through Goss Jagjit. His mathematical skills were impaired. His visuospatial function was also impaired. SPEECH: He had a mild dysarthria, but it should be noted that he was close to edentulous. LANGUAGE: He had a mild anomia for low-frequency words. CRANIAL NERVE EXAMINATION: II: The visual prakash were intact on confrontation testing. III, IV & : The external ocular movements were full and the pupils 3 mm in diameter, equal, round, regular, and reactive to light. V: He had normal facial sensations, and the temporales, masseters, and pterygoids functioned normally. VII: He had normal facial expressions and no facial asymmetry. VIII: He was able to hear well bilaterally and had no nystagmus. IX: The palate moved symmetrically on phonation. X: He had no hoarseness of voice. XI: The sternocleidomastoids and trapezii functioned normally. XII: The tongue was in the midline without any fasciculations or atrophy. MOTOR SYSTEM: The tone was normal in all four extremities. Examination of muscle mass revealed no focal wasting. He did have bilateral deep Dupuytren's contractures, more marked on the right than on the left. Examination of power revealed G 5/5 power in all muscle groups tested. SENSORY EXAMINATION: He had intact sensations to pinprick, light touch, and graphesthesia. COORDINATION: He performed well on [id number] testing. REFLEXES: 1+ and bilaterally symmetrical at the biceps, triceps, brachioradialis , and knees, and 0 at both ankles. The plantar responses were flexor bilaterally. STANCE: He had a minimally wide-based, but stable stance. GAIT: He walked with a minimally wide-based, but stable gait. Impression/Recommendations Diagnostic Impression 1. Mr. Ian Thomas is an 83-year-old, right-handed, black gentleman, with past history of hypertension and smoking, who on the afternoon of 08/07/18 had 5 to 10-minute episode of problems expressing himself, which resolved spontaneously. 2. He feels well. He has had no further episode of speech problems. The mind is clear. He denies any new neurologic symptoms. He specifically denies any weakness on one side or the other, numbness on one side or the other, problems with vision, problems with speech, or problems with language. He is eager to go home. 3. On neurological examination at this time, he does have problems with recent and remote memory, visuospatial function, higher cognitive function, and a mild anomia. 4. Laboratory data obtained thus far have revealed a relatively normal CBC. Chemistry panel with blood glucose elevated to 116, alkaline phosphatase elevated to 123. ProBNP elevated to 161. Urine toxicology screen that was benign. Urinalysis that revealed 1+ leukocyte esterase, 0-2 red blood cells, and 0-2 white blood cells per high-power field. 5. The MRI of the brain done on 08/07/18 revealed a small right parietal deep white matter acute infarct, old DWM changes and atrophy. 6. The Carotid Duplex was normal. 7. The patient's history, neurological examination, and laboratory data are most compatible with a right parietal deep white matter acute infarct, clinically manifesting as a transient ischemic attack most probably causing a dysarthria. Recommendations 1. The patient was again given an explanation of the above-mentioned findings. 2. Continue aspirin 81 mg daily. 3. His blood pressure should be kept in the 120 to 130 over 70 to 80 mmHg range at all times. 4. He was again told to stop smoking immediately. 5. If discharged - follow up in office in 6-8 weeks. Abrahan Toney M.D., M.S.P.H. Abrahan Toney MD Aug 08, 2018 15:31
[2018-08-08 16:00] VITALS: BP 150/42
--- NOTE | 2018-08-08 19:22 | NUR ---
HAND-OFF: Report given to Cady MONTEZ.
--- NOTE | 2018-08-08 19:30 | NUR ---
NURSE NOTES: Report received from TC Smith. Pt is lying comfortably in semi-fowlers. A+Ox4, denies pain and SOB. Pt shows no signs of distress. IV site is patent, intact, and saline locked. Respirations are even and unlabored on room air. Bed is at lowest position, brakes engaged, siderails x2, bed alarm on, and call light within reach. Pt is in stable condition at this time, admission orders in; will continue to monitor.
--- NOTE | 2018-08-08 19:51 | Geriatric Progress Note ---
Assessment/Plan Problems: (1) Hyperlipidemia (2) Elevated hemoglobin A1c (3) HTN (hypertension) (4) Stroke (5) Tobacco abuse Assessment/Plan Explained cerebrovascular risk factors in detail, including poorly controlled HTN, hyperlipidemia, mild elevation HgbA1c, smoking. Strongly urged compliance with meds, d/c tobacco, low concentrated sweets. Patient showed OTC supplement son recommended for bp control, appears homeopathic - educated patient re lack of scientific data supporting treatment, but no definite contraindication. However, emphasized need to comply with prescribed meds as well. Patient expresses understanding. Will increase amlodipine to 5mg bid. Await echo result, EEG. Hope to d/c tomorrow if patient remains stable. Discussed with: patient Subjective Interval Events Patient feels at baseline. No new issues. Staff reports no functional changes. Bp still running on high side. Labs with glyco 6.1%. Started on clopidogrel, atrovastatin per Dr. Fitch. Constitutional: Denies: chills, pain, sweats, fever Respiratory: Denies: shortness of breath Cardiovascular: Denies: chest pain, palpitations Gastrointestinal/Abdominal: Denies: abdominal pain Genitourinary: Denies: dysuria Musculoskeletal: Denies: back pain Neurologic: Denies: headache, focal weakness, dizziness Geriatric Geriatric Last 24 Hour Vital Signs Date Time Temp Pulse Resp B/P (MAP) Pulse Ox O2 Delivery O2 Flow Rate FiO2 08/08/18 16:00 97.1 70 18 150/42 (78) 96 08/08/18 16:00 67 08/08/18 12:00 60 08/08/18 11:51 97.4 66 18 124/63 (83) 95 08/08/18 09:00 Room Air 08/08/18 08:41 63 140/56 08/08/18 08:41 63 140/56 08/08/18 08:00 66 65 87 08/08/18 08:00 71 08/08/18 08:00 97.5 63 18 140/56 (84) 95 08/08/18 04:00 97.3 74 18 147/79 (101) 94 08/08/18 04:00 87 08/08/18 00:30 97.5 57 17 129/57 (81) 96 08/08/18 00:00 61 08/07/18 22:05 72 146/90 08/07/18 21:33 Room Air 08/07/18 21:20 97.9 72 18 146/90 99 Room Air 08/07/18 21:15 97.0 77 18 137/50 (79) 94 08/07/18 21:00 97.9 72 18 146/90 99 Room Air 08/07/18 20:57 97.9 72 18 165/135 99 Room Air 08/07/18 20:53 97.9 72 18 160/85 99 Room Air 08/07/18 20:41 97.9 72 18 180/78 99 Room Air 08/07/18 20:37 72 180/78 Intake and Output 08/07/18 08/08/18 18:59 06:59 # Voids 1 Laboratory Tests Test 08/08/18 06:40 White Blood Count 11.0 K/UL (4.8-10.8) H Red Blood Count 4.94 M/UL (4.70-6.10) Hemoglobin 14.9 G/DL (14.2-18.0) Hematocrit 43.1 % (42.0-52.0) Mean Corpuscular Volume 87 FL (80-99) Mean Corpuscular Hemoglobin 30.2 PG (27.0-31.0) Mean Corpuscular Hemoglobin Concent 34.6 G/DL (32.0-36.0) Red Cell Distribution Width 12.1 % (11.6-14.8) Platelet Count 254 K/UL (150-450) Mean Platelet Volume 6.2 FL (6.5-10.1) L Neutrophils (%) (Auto) 71.2 % (45.0-75.0) Lymphocytes (%) (Auto) 18.6 % (20.0-45.0) L Monocytes (%) (Auto) 8.0 % (1.0-10.0) Eosinophils (%) (Auto) 1.3 % (0.0-3.0) Basophils (%) (Auto) 1.0 % (0.0-2.0) Erythrocyte Sedimentation Rate 8 MM/HR (0-20) Sodium Level 139 MMOL/L (136-145) Potassium Level 4.2 MMOL/L (3.5-5.1) Chloride Level 104 MMOL/L (98-107) Carbon Dioxide Level 29 MMOL/L (21-32) Anion Gap 6 mmol/L (5-15) Blood Urea Nitrogen 15 mg/dL (7-18) Creatinine 1.0 MG/DL (0.55-1.30) Estimat Glomerular Filtration Rate mL/min (>60) Glucose Level 87 MG/DL (74-106) Hemoglobin A1c 6.1 % (4.3-6.0) H Calcium Level 9.3 MG/DL (8.5-10.1) Total Creatine Kinase 93 U/L (26-308) C-Reactive Protein, Quantitative 0.4 mg/dL (0.00-0.90) Triglycerides Level 95 MG/DL (30-150) Cholesterol Level 168 MG/DL (< 200) LDL Cholesterol 112 mg/dL (<100) H HDL Cholesterol 41 MG/DL (40-60) Cholesterol/HDL Ratio 4.1 (3.3-4.4) Vitamin B12 Level 433 PG/ML (193-986) Vitamin D 25-Hydroxy Pending 25-Hydroxy Vitamin D2 Pending 25-Hydroxy Vitamin D3 Pending Folate 18.2 NG/ML (8.6-58.9) Thyroid Stimulating Hormone (TSH) 0.990 uiU/mL (0.358-3.740) Rapid Plasma Reagin Pending Current Medications Medications (Trade) Dose Ordered Sig/Mary Ellen Route PRN Reason Start Time Stop Time Status Last Admin Dose Admin Amlodipine Besylate (Norvasc) 5 mg DAILY ORAL 08/07/18 20:30 09/06/18 20:29 08/08/18 08:41 Atorvastatin Calcium (Lipitor) 10 mg BEDTIME ORAL 08/08/18 21:00 09/07/18 20:59 Clopidogrel Bisulfate (Plavix) 75 mg DAILY ORAL 08/08/18 09:00 09/07/18 08:59 08/08/18 08:40 Dextrose (Dextrose 50%) 25 ml Q30M PRN IV Hypoglycemia 08/07/18 19:30 09/06/18 19:29 Dextrose (Dextrose 50%) 50 ml Q30M PRN IV Hypoglycemia 08/07/18 19:30 09/06/18 19:29 Gadobutrol (Gadavist) 7.5 mmol NOW PRN IV Radiology Procedure 08/07/18 17:00 08/11/18 16:53 Metoprolol Tartrate (Lopressor) 25 mg Q12HR ORAL 08/07/18 21:00 09/06/18 20:59 08/08/18 08:41 Height (Feet): 6 Height (Inches): 0.00 Weight (Pounds): 195 General Appearance: no apparent distress, alert, non-toxic Head: normocephalic, atraumatic Eyes: bilateral anicteric ENT: normal voice Neck: full range of motion, no mass Respiratory: lungs clear Cardiovascular: regular rate, rhythm Gastrointestinal: normal bowel sounds, non tender, soft, no mass, no organomegaly, non-distended Musculoskeletal: no calf tenderness Edema: no edema noted Generalized Neurologic: alert, motor strength/tone normal, no new focality Catracho Coe MD Aug 08, 2018 19:51
[2018-08-08 20:00] VITALS: BP 147/85
[2018-08-09] VITALS: BP 147/75
--- NOTE | 2018-08-09 02:45 | Progress Note ---
DATE: 08/08/2018 CARDIOLOGY PROGRESS NOTE SUBJECTIVE: The patient had a 2D echo with bubble study performed by me today. There was no evidence of intracardiac shunting noted. The patient has no complaints. OBJECTIVE: VITAL SIGNS: Blood pressure 150/42, earlier 124/63, heart rate 66, respiratory rate 18, and afebrile. Monitored rhythm is sinus. No sustained atrial ectopy. Occasional premature ventricular contractions noted. Speech is fluent at baseline. NECK: Supple. LUNGS: Clear. No bruits. CARDIAC: Regular rhythm and rate. Normal S1 and S2. Fourth heart sound. ABDOMEN: Soft. No edema. LABORATORY DATA: Reviewed. Total cholesterol 168 with LDL 112. IMPRESSION: 1. Acute cerebrovascular accident in the right parietal deep white matter region. 2. Hypertensive heart disease. Normal carotid duplex study. 3. Dyslipidemia, nicotine abuse. No signs of intracardiac shunt. No evidence of cardiac ____ atrial cardiac arrhythmias for cardioembolic source. PLAN: 1. Recommend anti-platelet therapy. 2. Continue current cardiovascular regimen and titrate to optimize blood pressure control. 3. Maintain statin drug. 4. Smoking cessation. 5. Outpatient cardiovascular followup planned. Alvaro Fitch M.D. DR: BINH JOB#: [id number] CC:
[2018-08-09 04:00] VITALS: BP 123/65
--- NOTE | 2018-08-09 07:27 | NUR ---
HAND-OFF: Report given to TC Romo. Pt is in stable condition; plan of care endorsed.
--- NOTE | 2018-08-09 07:28 | NUR ---
NURSE NOTES: Received patient from TC Lazar. Patient is resting in bed, eating breakfast. Alert and oriented x4. No signs and symptoms of any distress at this time. Denies pain. Call light and side table is within reach. Bed brakes engaged. Will continue to monitor and follow plan of care.
[2018-08-09 08:00] VITALS: BP 139/78
[2018-08-09] MEDS: Metoprolol 25mg tab ORAL SCH (08:54)
[2018-08-09 12:00] VITALS: BP 143/77
--- NOTE | 2018-08-09 13:43 | Neurology Progress Note ---
Interim History Interim History Interim History Mr. Thomas feels very well. He slept well last night. His appetitie is good and he is eating well. He has had no further episode of speech problems. The mind is clear. He denies any new neurologic symptoms. He specifically denies any weakness on one side or the other, numbness on one side or the other, problems with vision, problems with speech, or problems with language. He is eager to go home. Review of Systems Neuro Review of Systems Benign. Objective Physical Exam Last Vital Signs Date Time Temp Pulse Resp B/P (MAP) Pulse Ox O2 Delivery O2 Flow Rate FiO2 08/09/18 12:00 96.2 73 20 143/77 (99) 95 08/09/18 09:00 Room Air Neurologic Exam Objective PHYSICAL EXAMINATION: GENERAL: He is a well-developed, well-nourished, pleasant black gentleman, in no acute distress. HEAD: Normocephalic and atraumatic. EENT: Examination benign except for him being edentulous other than having two teeth remaining. NECK: No neck rigidity was observed. NEUROLOGICAL EXAMINATION: MENTAL STATUS EXAMINATION: He was awake and alert. He was oriented to person, place, and time except for the exact date. He was able to recall 3/3 words immediately, but could only remember 2/3 words in 1 minute and 3 minutes even on the second trial. He was able to remember Presidents Trump through Goss Jagjit. His mathematical skills were impaired. His visuospatial function was also impaired. SPEECH: He had a mild dysarthria, but it should be noted that he was close to edentulous. LANGUAGE: He had a mild anomia for low-frequency words. CRANIAL NERVE EXAMINATION: II: The visual prakash were intact on confrontation testing. III, IV & : The external ocular movements were full and the pupils 3 mm in diameter, equal, round, regular, and reactive to light. V: He had normal facial sensations, and the temporales, masseters, and pterygoids functioned normally. VII: He had normal facial expressions and no facial asymmetry. VIII: He was able to hear well bilaterally and had no nystagmus. IX: The palate moved symmetrically on phonation. X: He had no hoarseness of voice. XI: The sternocleidomastoids and trapezii functioned normally. XII: The tongue was in the midline without any fasciculations or atrophy. MOTOR SYSTEM: The tone was normal in all four extremities. Examination of muscle mass revealed no focal wasting. He did have bilateral deep Dupuytren's contractures, more marked on the right than on the left. Examination of power revealed G 5/5 power in all muscle groups tested. SENSORY EXAMINATION: He had intact sensations to pinprick, light touch, and graphesthesia. COORDINATION: He performed well on [id number] testing. REFLEXES: 1+ and bilaterally symmetrical at the biceps, triceps, brachioradialis , and knees, and 0 at both ankles. The plantar responses were flexor bilaterally. STANCE: He had a minimally wide-based, but stable stance. GAIT: He walked with a minimally wide-based, but stable gait. Impression/Recommendations Diagnostic Impression 1. Mr. Ian Thomas is an 83-year-old, right-handed, black gentleman, with past history of hypertension and smoking, who on the afternoon of 08/07/18 had 5 to 10-minute episode of problems expressing himself, which resolved spontaneously. 2. He feels very well. He slept well last night. His appetite is good and he is eating well. He has had no further episode of speech problems. The mind is clear. He denies any new neurologic symptoms. He specifically denies any weakness on one side or the other, numbness on one side or the other, problems with vision, problems with speech, or problems with language. He is eager to go home. 3. On neurological examination at this time, he does have problems with recent and remote memory, visuospatial function, higher cognitive function, and a mild anomia. 4. Laboratory data obtained thus far have revealed a relatively normal CBC. Chemistry panel with blood glucose elevated to 116, alkaline phosphatase elevated to 123. ProBNP elevated to 161. Urine toxicology screen that was benign. Urinalysis that revealed 1+ leukocyte esterase, 0-2 red blood cells, and 0-2 white blood cells per high-power field. 5. The MRI of the brain done on 08/07/18 revealed a small right parietal deep white matter acute infarct, old DWM changes and atrophy. 6. The Carotid Duplex was normal. 7. The patient's history, neurological examination, and laboratory data are most compatible with a right parietal deep white matter acute infarct, clinically manifesting as a transient ischemic attack most probably causing a dysarthria. Recommendations 1. The patient was again given an explanation of the above-mentioned findings. 2. Continue Plavix 75 mg daily. 3. His blood pressure should be kept in the 120 to 130 over 70 to 80 mmHg range at all times. 4. He was again told to stop smoking immediately. 5. If discharged - follow up in office in 6-8 weeks. Abrahan Toney M.D., M.S.P.H. Abrahan Toney MD Aug 09, 2018 13:43
[2018-08-09] MEDS ORDERED: LOPRESSOR25 M1 ORAL (13:49)
[2018-08-09] MEDS ORDERED: NORVASC5 MG ORAL (13:49)
[2018-08-09] MEDS ORDERED: PLAVIX75 MG ORAL (13:49)
[2018-08-09] MEDS ORDERED: LIPITOR10 MG ORAL (13:49)
--- NOTE | 2018-08-09 13:51 | Discharge Instructions ---
Discharge Instructions Discharge Instructions Follow Up Orders Follow up in office in about three weeks. Follow up with Dr. Toney in 6 weeks. Follow up with Dr. Fitch as scheduled. For Congestive Heart Failure Reminder Report to your physician any weight gain of 5 pounds or more in one week. Catracho Coe MD Aug 09, 2018 13:51
--- NOTE | 2018-08-09 14:18 | Geriatric Progress Note ---
Assessment/Plan Problems: (1) Hyperlipidemia (2) Elevated hemoglobin A1c (3) HTN (hypertension) (4) Stroke (5) Tobacco abuse Assessment/Plan Once again reviewed precautions, need for compliance with meds, abstain from smoking. To return to office in 3weeks for bp med titration. Meds prescribed to [facility] pharmacy. Dictated #[id number] Discussed with: patient Subjective Interval Events Patient feeling well, anxious to leave. Funtionally appears at baseline. Bp probably higher than optimal, but further med titration to be done as outpatient. Staff reports no significant change. Echo with bubble study without significant abnormality. EEG with no evidence of ictal foci, some mild generalized slowing per Dr. Toney. Constitutional: Denies: chills, pain, sweats, fever Respiratory: Denies: cough, shortness of breath Cardiovascular: Denies: chest pain, palpitations Gastrointestinal/Abdominal: Denies: abdominal pain, nausea, vomiting Genitourinary: Denies: dysuria Musculoskeletal: Denies: joint pain Geriatric Geriatric Last 24 Hour Vital Signs Date Time Temp Pulse Resp B/P (MAP) Pulse Ox O2 Delivery O2 Flow Rate FiO2 08/09/18 12:00 96.2 73 20 143/77 (99) 95 08/09/18 12:00 70 08/09/18 09:00 Room Air 08/09/18 08:54 73 139/78 08/09/18 08:54 73 139/78 08/09/18 08:00 73 73 83 08/09/18 08:00 96.3 73 22 139/78 (98) 92 08/09/18 08:00 83 08/09/18 04:00 71 08/09/18 04:00 97.0 66 19 123/65 (84) 93 08/09/18 00:00 97.7 78 19 147/75 (99) 93 08/09/18 00:00 59 08/08/18 21:00 Room Air 08/08/18 20:59 64 147/85 08/08/18 20:59 64 147/85 08/08/18 20:10 75 08/08/18 20:05 62 08/08/18 20:00 64 08/08/18 20:00 97.0 64 19 147/85 (105) 96 08/08/18 20:00 57 08/08/18 16:00 97.1 70 18 150/42 (78) 96 08/08/18 16:00 67 Intake and Output 08/08/18 08/09/18 19:00 07:00 Intake Total 360 ml 120 ml Balance 360 ml 120 ml Intake Oral 360 ml 120 ml # Voids 3 4 Current Medications Medications (Trade) Dose Ordered Sig/Mary Ellen Route PRN Reason Start Time Stop Time Status Last Admin Dose Admin Amlodipine Besylate (Norvasc) 5 mg BID ORAL 08/08/18 20:00 09/07/18 19:59 08/09/18 08:54 Atorvastatin Calcium (Lipitor) 10 mg BEDTIME ORAL 08/08/18 21:00 09/07/18 20:59 08/08/18 20:59 Clopidogrel Bisulfate (Plavix) 75 mg DAILY ORAL 08/08/18 09:00 09/07/18 08:59 08/09/18 08:54 Dextrose (Dextrose 50%) 25 ml Q30M PRN IV Hypoglycemia 08/07/18 19:30 09/06/18 19:29 Dextrose (Dextrose 50%) 50 ml Q30M PRN IV Hypoglycemia 08/07/18 19:30 09/06/18 19:29 Gadobutrol (Gadavist) 7.5 mmol NOW PRN IV Radiology Procedure 08/07/18 17:00 08/11/18 16:53 Metoprolol Tartrate (Lopressor) 25 mg Q12HR ORAL 08/08/18 21:00 09/06/18 20:59 08/09/18 08:54 Height (Feet): 6 Height (Inches): 0.00 Weight (Pounds): 195 General Appearance: no apparent distress, alert, non-toxic Head: normocephalic, atraumatic Eyes: bilateral anicteric, bilateral EOMI ENT: normal voice Neck: full range of motion, no mass Respiratory: lungs clear Cardiovascular: regular rate, rhythm Gastrointestinal: normal bowel sounds, non tender, soft, no mass, no organomegaly, non-distended Musculoskeletal: no calf tenderness Edema: no edema noted Generalized Neurologic: alert, ham stringer II-XII nml as tested, motor strength/tone normal, normal gait, no new focality Neurologic: Romberg - negative Catracho Coe MD Aug 09, 2018 14:18
--- NOTE | 2018-08-09 14:50 | NUR ---
NURSE NOTES: Patient discharged home per 's order. All discharge instructions explained to patient, verbalized understanding. IV access removed. ID band removed and placed in shredder. Heart monitor removed and returned to firestopper technician. All patient's belonging returned to patient. Patient left the hospital in stable condition and with private car.
--- NOTE | 2018-08-09 15:48 | Diagnostic Imaging Report ---
Indication: Altered level of consciousness Technique: Contiguous 5 mm thick transaxial imaging of the head obtained in a Siemens Sensation [address] scanner. Soft tissue and bone windows generated. Automatic Exposure Control was utilized. Total Dose length Product (DLP): [address] Dose Index Volume (CTDIvol): 70.38 mGy Comparison: none Findings: There is mild prominence of the ventricles, basal cisterns, and cerebral sulci consistent with atrophy. Mild, nonspecific, white matter hypoattenuation is noted throughout the brain consistent with chronic small vessel disease. There is no midline shift, edema, acute hemorrhage, mass effect, or abnormal extra-axial fluid collections. Bones and extra osseous soft tissues are unremarkable. Impression: No acute intracranial bleed, mass effect or edema. Mild atrophy of the brain. Nonspecific white matter hypoattenuation probably due to chronic small vessel disease. The CT scanner at [facility] is accredited by the [employer] and the scans are performed using dose optimization techniques as appropriate to a performed exam including Automatic Exposure control.
--- NOTE | 2018-08-09 15:49 | Diagnostic Imaging Report ---
Indication: Dyspnea Comparison: None A single view chest radiograph was obtained. Findings: No definite infiltrate or pulmonary vascular congestion identified. The heart is borderline enlarged. The aorta is mildly enlarged consistent with atherosclerotic vascular disease. The bones are osteopenic. Impression: No acute disease
--- NOTE | 2018-08-09 15:49 | Diagnostic Imaging Report ---
Indication: Slurred speech Technique: The head was imaged in a 1.5 Edwina magnet. Sequences obtained include sagittal and axial T1 FLAIR, axial T2 fast spin echo with fat saturation, axial T2 FLAIR, diffusion and ADC map. Gadolinium-enhanced axial and coronal T1 FLAIR obtained also. Comparison: None There is a tiny punctate focus of diffusion restriction in the right troy radiata just above the insular cortex consistent with a tiny acute CVA. Whether this symptomatic is unknown and could be incidental as there are other findings of chronic small vessel ischemia with foci of T2 hyperintense signal demonstrated throughout the white matter tracts. Moderate generalized atrophy of the brain also demonstrated with prominence of sulci ventricles and basal cisterns. There is no mass effect or edema. There is no evidence of hemorrhage. The corpus callosum, sella, bone marrow signal appear normal. Some mucosal thickening demonstrated within the ethmoid sinus. IMPRESSION: Tiny acute small vessel CVA right temporal white matter. Correlate clinically. Possible this is an incidental finding. Evidence of other chronic small vessel disease noted. Mild to moderate generalized atrophy. Sinus disease [facility] has communicated the preliminary results to the Emergency Department. Their findings are largely concordant with this report.
--- NOTE | 2018-08-09 17:00 | Electroencephalogram ---
DATE OF PROCEDURE: 08/09/2018 REQUESTING PHYSICIAN: Catracho Coe M.D. READING PHYSICIAN: Abrahan Toney M.D. PROCEDURE PERFORMED: Electroencephalogram. HISTORY: This EEG was performed on an 83-year-old gentleman who had speech problems. The purpose of this EEG was to evaluate the patient for the degree and type of cerebral dysfunction and to exclude ongoing ictal or interictal phenomena. TECHNICAL NOTE: This EEG was performed on a [employer] Digital Acquisition Unit with electrodes placed on the scalp according to the International 10-20 system. [id number] and [id number] montages were used. The EEG was technically satisfactory and was performed in the awake, drowsy, and sleep states. OBSERVATIONS: In the best awake state, the background activity consisted of 8.5-9 Hz alpha activity with a small amount of intermixed theta frequencies. Drowsiness was characterized by slowing of the background in the 5-6 Hz theta range. Stage II sleep was characterized by further slowing of the background in the delta and theta range, the presence of vertex waves, and 12 Hz sleep spindles. No focal abnormalities or epileptiform discharges were seen. IMPRESSION: This is an abnormal EEG characterized by slowing of the background with an unusually large amount of intermixed theta activity seen during the reportedly awake state. COMMENT: This study is consistent with an encephalopathy of a mild degree. Abrahan Toney M.D., M.S.P.H. DR: Lottie JOB#: [id number]
--- NOTE | 2018-08-09 23:30 | Discharge Summary ---
DATE OF ADMISSION: 08/07/2018 DATE OF DISCHARGE: 08/09/2018 DISCHARGE DIAGNOSES: 1. 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 2. Transient neurologic deficits including aphasia, mild confusion, and apraxia. 3. Poorly controlled hypertension. 4. Hyperlipidemia. 5. Borderline glycohemoglobin. 6. History of chronic tobacco usage. 7. Episodic inadvertent medication noncompliance. HISTORY OF PRESENT ILLNESS: The patient is an 83-year-old gentleman who has been in generally relatively good health, but with known poorly controlled hypertension and continued tobacco usage. He presented to the office with aphasia and altered mental status. Details of the history and physical examination per the dictation on 08/07/2018. HOSPITAL COURSE: The patient's CT scan was read as unremarkable, but his MRI with contrast revealed evidence of a very small acute infarct in the right internal capsule just above the insula. It is unclear whether this lesion would have caused the aphasia noted on the examination in the office or whether the patient may have had additional embolic areas not clearly visualized on the MRI. In any event, within several hours, the patient's symptoms had resolved and the patient appeared back to baseline. Laboratory data failed to reveal any abnormalities in terms of the toxicology screen. The patient had borderline leukocytosis, which was thought to represent demargination rather than an infectious process. His LDL cholesterol was borderline elevated at 112 with an HDL of 41. Other laboratory studies including B12, folate, and TSH were unremarkable. C-reactive protein 0.4. Troponins were normal as well. The other laboratory work was fairly unremarkable except for glycohemoglobin of 6.1%, elevated but not necessarily in his age group requiring specific treatment. The patient was seen in neurologic consultation by Dr. Abrahan Toney and in Cardiology consultation by Dr. Alvaro Fitch. Echocardiogram with bubble study failed to reveal a patent foramen or any other significant cardiac abnormalities. An EEG showed some mild diffuse slowing, but no focal abnormalities with no signature for underlying ictal process. Carotid studies were likewise unremarkable. At this point, the patient appears functionally back to baseline. He experienced a definite thromboembolic stroke, perhaps a shower of artery to artery. In any event, the patient has been instructed by all the physicians as well as the hospital staff on the importance of compliance and discontinuation of smoking in order to minimize his risk for further cerebrovascular events. The patient expressed an understanding of this. DISCHARGE MEDICATIONS: The patient's discharge medications will currently include amlodipine 5 mg b.i.d., metoprolol tartrate 25 mg b.i.d., clopidogrel 75 mg daily, and atorvastatin 10 mg nightly. FOLLOWUP: The patient's current systolics are running in the 140 range. He will be discharged to home and is to follow up in the office in approximately 3 weeks. It is possible that he may require further blood pressure medication titration in order to optimize his blood pressure in the 120-130 systolic range. The patient is also to follow up with Dr. Toney in approximately [address] Fitch as scheduled. Catracho Coe M.D. DR: ARANZA JOB#: [id number] CC: [id number]
--- NOTE | 2018-08-10 04:15 | Progress Note ---
DATE: 08/10/2017 CARDIOLOGY PROGRESS NOTE SUBJECTIVE: The patient has no new complaints. No chest pain. His neurologic parameters are grossly normal. OBJECTIVE: VITAL SIGNS: Blood pressure 143/77, heart rate 73, and respiratory rate 20. LUNGS: Bilateral breath sounds. No wheezing. HEART: Regular rhythm and rate. Normal S1 and S2 with a fourth heart sound. ABDOMEN: Soft. No edema. IMPRESSION: 1. Acute CVA. 2. Hypertensive heart disease. 3. Hyperlipidemia. 4. Glucose intolerance. 5. Nicotine abuse. PLAN: 1. Anti-platelet and anti-lipid therapy. 2. Continue current cardiovascular regimen. 3. Reassess as outpatient for further titration and tightening of blood pressure control. Alvaro Fitch M.D. DR: NIKOLAS JOB#: [id number] CC:
== END 2018-08-09 14:50 | disposition home or self-care (01) | DRG 66 ==
LOC: EMR 16:18 → 2E 17:00 → EDBEDREQ 17:10 → OBSVTOIN 20:00
DX: I63.40 Cerebral infarction due to embolism of unspecified cerebral artery (principal); R47.01 Aphasia; R48.2 Apraxia; R41.0 Disorientation, unspecified; E78.5 Hyperlipidemia, unspecified; F17.200 Nicotine dependence, unspecified, uncomplicated; Z91.14 Patient's other noncompliance with medication regimen; I13.10 Hypertensive heart and chronic kidney disease without heart failure, with stage 1 through stage 4 chronic kidney disease, or unspecified chronic kidney disease; N18.9 Chronic kidney disease, unspecified; I49.3 Ventricular premature depolarization; I70.91 Generalized atherosclerosis; E74.39 Other disorders of intestinal carbohydrate absorption
CPT/HCPCS: 36415; 70450; 70552; 71045; 80048; 80053; 80061; 80307; 81003; 82306; 82550; 82607; 82746; 83036; 83880; 84443; 84484; 85025; 85610; 85651; 85730; 86140; 86592; 93005; 93306; 93880; 95819; 99285; A9585